=== PATIENT | male | born 1985 | race Caucasian/White ===

== ENCOUNTER 2021-07-04 12:33 | Emergency (ER) | payer BC ==
[~2021-07-04] VITALS: Ht 180.3 cm; Wt 63.6 kg
[2021-07-04 12:54] VITALS: TEMP 98.6
[2021-07-04 14:30] VITALS: BP 117/80; PULSE 93
[2021-07-04] MEDS ORDERED: ZOFRAN ODT4 MG PO (14:36)
== END 2021-07-04 14:42 | disposition home or self-care (01) ==
LOC: COL.ER 12:33
DX: B34.9 Viral infection, unspecified (principal); F17.200 Nicotine dependence, unspecified, uncomplicated; Z20.822 Contact with and (suspected) exposure to COVID-19